=== PATIENT | male | born 1985 | race Hispanic/Latino ===

== ENCOUNTER 2017-07-22 03:32 | Emergency (ER) | payer OTHER ==
[~2017-07-22] VITALS: Ht 180.3 cm; Wt 81.6 kg
[2017-07-22] MEDS ORDERED: KETOROLAC TROMETHAMINE 60 MG/2 ML VIAL IM ONE (04:30)
[2017-07-22] MEDS ORDERED: IBUPROFEN 400 MG TAB PO ONE (05:00)
== END 2017-07-22 04:50 | disposition home or self-care (01) ==
LOC: FSED 03:32
DX: S63.286A Dislocation of proximal interphalangeal joint of right little finger, initial encounter (principal); W23.0XXA Caught, crushed, jammed, or pinched between moving objects, initial encounter; Y92.89 Other specified places as the place of occurrence of the external cause; F10.129 Alcohol abuse with intoxication, unspecified
CPT/HCPCS: 29131; 73140; 99284; J1885